=== PATIENT | female | born 1955 | race Caucasian/White ===

== ENCOUNTER 2023-09-09 14:42 | Emergency (ER) | payer MEDICAID ==
[~2023-09-09] VITALS: Ht 160 cm; Wt 68.0 kg
[2023-09-09 14:53] VITALS: O2SAT 99
[2023-09-09 16:33] LABS: CALCIUM 9.4 mg/dL (8.7-10.4); CARBON DIOXIDE 22 mEq/L (21-32); CHLORIDE 102 mEq/L (98-107); CREATININE 0.8 mg/dL (0.6-1.0); GLUCOSE 220 mg/dL (70-105); POTASSIUM 4.2 mEq/L (3.5-5.1); SODIUM 134 mEq/L (136-145); UREA NITROGEN BLOOD 15 mg/dL (9-23)
[2023-09-09] MEDS ORDERED: IBUP-2028 MT (16:43)
[2023-09-09] MEDS ORDERED: TOPUD MT (16:44)
[2023-09-09] MEDS ORDERED: KETOROLAC 60MG/2ML VIAL IM ONE (16:45)
[2023-09-09] MEDS ORDERED: KETOROLAC 60MG/2ML VIAL IM NR (18:45)
[2023-09-09 20:09] VITALS: BP 175/54; PULSE 75; RESP 19; TEMP 97.9
== END 2023-09-09 20:15 | disposition home or self-care (01) ==
LOC: ER 15:04
DX: N64.4 Mastodynia (principal); E11.9 Type 2 diabetes mellitus without complications; I10 Essential (primary) hypertension; Z90.49 Acquired absence of other specified parts of digestive tract
CPT/HCPCS: 80048; 36415; 96372; 99283; J1885; Z7610 ×2

== ENCOUNTER 2024-04-14 13:03 | Emergency (ER) | payer MEDICAID ==
[~2024-04-14] VITALS: Ht 165.1 cm; Wt 65.0 kg
[~2024-04-14 13:03] MED LIST: IBUP-2028 MT; TOPUD MT
[2024-04-14 13:07] VITALS: O2SAT 98
[2024-04-14] MEDS ORDERED: DICYCLOMINE 10 MG/5 ML ORAL SYR PO STA (13:10)
[2024-04-14] MEDS: MAGNESIUM/ALUMINUM HYDROXIDE/SIMETHICONE 30ML UDC PO STA (13:54)
[2024-04-14] MEDS: FAMOTIDINE 20MG TABLET PO ONE (13:54)
[2024-04-14] MEDS: ONDANSETRON 4MG ODT PO STA (13:54)
[2024-04-14] MEDS: DICYCLOMINE HCL 10MG CAPSULE PO NR (14:42)
[2024-04-14 14:59] LABS: BASOPHILS % 0.5 % (0.0-2.0); EOSINOPHILS % 0.1 % (0.0-5.0); HEMATOCRIT. 30.9 % (36.0-48.0); HEMOGLOBIN. 11.1 g/dL (12.0-16.0); LYMPHOCYTES % 16.6 % (20.0-50.0); MEAN CORPUSCULAR HEMOGLOBIN 34.2 pg (28.0-32.0); MEAN CORPUSCULAR VOLUME 94.9 fL (81.0-99.0); MEAN PLATELET VOLUME 8.2 fl (7.4-10.4); MONOCYTES % 7.2 % (2.0-8.0); NEUTROPHILS % 75.6 % (40.0-76.0); PLATELET 210 x1000/uL (130-400); RED BLOOD CELL COUNT 3.25 mill/uL (4.2-5.4); WHITE BLOOD COUNT 5.4 x1000/uL (4.5-11.0)
[2024-04-14 15:07] LABS: CHLORIDE 98 mEq/L (98-107); POTASSIUM 3.1 mEq/L (3.5-5.1); SODIUM 132 mEq/L (136-145)
[2024-04-14 15:08] LABS: CALCIUM 9.9 mg/dL (8.7-10.4); CARBON DIOXIDE 26 mEq/L (21-32)
[2024-04-14 15:13] LABS: GLUCOSE 56 mg/dL (70-105); UREA NITROGEN BLOOD 9 mg/dL (9-23)
[2024-04-14 15:15] LABS: ALANINE AMINOTRANSFERASE 15 IU/L (10-49); ALBUMIN 4.6 g/dL (3.2-4.8); ASPARTATE AMINOTRANSFERASE 50 IU/L (<34); BILIRUBIN DIRECT 0.3 mg/dL (<=3.0); BILIRUBIN TOTAL 1.1 mg/dL (0.1-1.0)
[2024-04-14 15:16] LABS: PROTEIN TOTAL 8.1 g/dL (6.0-8.3)
[2024-04-14] MEDS: POTASSIUM CHLORIDE 20MEQ TABLET SR PO ONE (17:26)
[2024-04-14] MEDS: SODIUM CHLORIDE 0.9% 1,000 ML IV ONE (17:27)
[2024-04-14 18:52] VITALS: BP 148/57; PULSE 87; RESP 15; TEMP 36.39180; O2SAT 99
== END 2024-04-14 19:00 | disposition home or self-care (01) ==
LOC: ER 13:03
DX: A08.4 Viral intestinal infection, unspecified (principal); E11.9 Type 2 diabetes mellitus without complications; I10 Essential (primary) hypertension
CPT/HCPCS: 80076; 80048; 83690; 85025; 36415; 99285; Q0162; J7030; Z7610

== ENCOUNTER 2024-06-03 20:16 | Emergency (ER) | payer MEDICAID ==
[~2024-06-03] VITALS: Ht 157.5 cm; Wt 57.0 kg
[2024-06-03 20:26] VITALS: BP 165/71; RESP 20; TEMP 98.4; O2SAT 100
[2024-06-03 20:27] VITALS: PULSE 104; O2SAT 100
[2024-06-03 23:55] LABS: EOSINOPHILS % 2.2 % (0.0-5.0); HEMATOCRIT. 28.2 % (36.0-48.0); LYMPHOCYTES % 41.8 % (20.0-50.0); MEAN CORPUSCULAR HEMOGLOBIN 33.5 pg (28.0-32.0); MEAN CORPUSCULAR HGB CONC 35.6 g/dL (31.0-37.0); MEAN PLATELET VOLUME 8.3 fl (7.4-10.4); MONOCYTES % 9.3 % (2.0-8.0); NEUTROPHILS % 44.7 % (40.0-76.0); PLATELET 186 x1000/uL (130-400); RED CELL DISTRIBUTION WIDTH 14.4 % (11.6-14.6); WHITE BLOOD COUNT 3.4 x1000/uL (4.5-11.0)
[2024-06-04 00:04] LABS: CHLORIDE 105 mEq/L (98-107); SODIUM 136 mEq/L (136-145)
[2024-06-04 00:07] LABS: CARBON DIOXIDE 24 mEq/L (21-32)
[2024-06-04 00:08] LABS: CALCIUM 10.5 mg/dL (8.7-10.4)
[2024-06-04 00:11] LABS: TROPONIN I HIGH SENSITIVITY 9 ng/L (3.0-34)
[2024-06-04 00:12] LABS: CREATININE 1.3 mg/dL (0.6-1.0)
[2024-06-04 00:13] LABS: GLUCOSE 120 mg/dL (70-105); UREA NITROGEN BLOOD 14 mg/dL (9-23)
[2024-06-04 00:14] LABS: ALANINE AMINOTRANSFERASE 30 IU/L (10-49); ALBUMIN 4.5 g/dL (3.2-4.8)
[2024-06-04 00:15] LABS: ASPARTATE AMINOTRANSFERASE 42 IU/L (<34); BILIRUBIN DIRECT 0.1 mg/dL (<=3.0); BILIRUBIN TOTAL 0.5 mg/dL (0.1-1.0); PROTEIN TOTAL 8.3 g/dL (6.0-8.3)
[2024-06-04 02:27] LABS: TROPONIN I HIGH SENSITIVITY 8 ng/L (3.0-34)
== END 2024-06-04 04:14 | disposition home or self-care (01) ==
LOC: ER 20:16
DX: R11.0 Nausea (principal); E11.9 Type 2 diabetes mellitus without complications; I10 Essential (primary) hypertension
CPT/HCPCS: 36415; 80048; 80076; 84484; 85025; 93005; 99291